=== PATIENT | male | born 1940 | race Caucasian/White ===

== ENCOUNTER 2017-09-26 05:23 | Emergency (ER) | payer MEDICARE, BC ==
[~2017-09-26] VITALS: Ht 190.5 cm; Wt 86.1 kg
[~2017-09-26 05:23] MED LIST: CALC625 PO; ENOX40P SQ; LORTA5 PO; LOVA20TA PO; PRIN10TA PO; SAW450CA2 PO; TAB-TAB PO; Z.0.COMMODE-3:1; Z.0.WALKERFRONT
[2017-09-26] MEDS ORDERED: SODIUM CHLORIDE 0.9% FLUSH 10 ML FLUSH IVF PRN (05:45)
--- NOTE | 2017-09-26 05:54 | PD ---
HPI Chief Complaint: Chest Pain Time Seen by Provider: 05:27 Travel History International Travel<30 days: No Contact w/Intl Traveler<30days: No History of Present Illness HPI 76-year-old man who presents to the emergency department complaining of palpitations, chest discomfort, lightheadedness. Reports she has been feeling fatigued recently. He went for a pacer check but a week ago that was her routine scheduled check. Everything seemed okay. He then went in for a doctor' s appointment he said his heart rate was in the 30s and 40s. His pacemaker supposed to be sent for the 70s. He had the [employer] rep, and they reassess the pacemaker and felt that it fixed. He was doing okay until the past day or so started feeling funny, and then tonight had palpitations, feeling weak and dizzy, with some chest discomfort. 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 Followed by Dr. Alfaro, as well as Dr. Enriquez Social History Alcohol Use: Yes (occ- wine) Tobacco Use: No Allergies-Medications (Allergen,Severity, Reaction): Coded Allergies: clarithromycin (Unverified Allergy, Severe, NAUSEA, 09/26/17) povidone-iodine (Unverified Allergy, Severe, Hives, 09/26/17) patient advised that he had a reaction to the medicine that was applied prior to his catherization, he believed it to be betadine. scallops (Unverified Allergy, Severe, CRAMPING, VOMITING, DIARRHEA, ) Reported Meds & Prescriptions Reported Meds & Active Scripts Active Reported Warfarin 10 Mg Tab 11.25 Mg PO EVERY OTHER WEEK Vitamin D-400 (Cholecalciferol) 400 Unit Tab 400 Units PO DAILY Warfarin 7.5 Mg Tab 7.5 Mg PO HS Aspirin 81 Low Dose (Aspirin) 81 Mg Chew 81 Mg CHEW HS Metoprolol Tartrate 50 Mg Tab 50 Mg PO BID Lisinopril 10 Mg Tab 10 Mg PO DAILY Lovastatin 20 Mg Tab 20 Mg PO HS Review of Systems Except as stated in HPI: all other systems reviewed are Neg Physical Exam Narrative GENERAL: 76-year-old man, thin, pectus excavatum, weak. SKIN: Focused skin assessment warm/dry. HEAD: Atraumatic. Normocephalic. EYES: Pupils equal and round. No scleral icterus. No injection or drainage. ENT: No nasal bleeding or discharge. Mucous membranes pink and moist. NECK: Trachea midline. No JVD. CARDIOVASCULAR: Heart rate slow, regular. No murmurs.. RESPIRATORY: No accessory muscle use. Clear to auscultation. Breath sounds equal bilaterally. GASTROINTESTINAL: Abdomen soft, non-tender, nondistended. Hepatic and splenic margins not palpable. MUSCULOSKELETAL: No obvious deformities. No edema. NEUROLOGICAL: Awake and alert. No obvious cranial nerve deficits. Motor grossly within normal limits. Normal speech. PSYCHIATRIC: Appropriate mood and affect; insight and judgment normal. Data Data Last Documented VS Vital Signs Date Time Temp Pulse Resp B/P (MAP) Pulse Ox O2 Delivery O2 Flow Rate FiO2 09/26/17 06:01 75 198/86 (123) 09/26/17 05:59 98.1 18 98 Room Air Orders Orders Electrocardiogram (09/26/17 05:42) Complete Blood Count With Diff (09/26/17 05:42) Comprehensive Metabolic Panel (09/26/17 05:42) Magnesium (Mg) (09/26/17 05:42) Troponin I (09/26/17 05:42) Ecg Monitoring (09/26/17 05:42) Iv Access Insert/Monitor (09/26/17 05:42) Oximetry (09/26/17 05:42) Oxygen Administration (09/26/17 05:42) Sodium Chloride 0.9% Flush (Ns Flush) (09/26/17 05:45) Chest, Pa & Lat (09/26/17 05:42) Act Partial Throm Time (Ptt) (09/26/17 05:49) Prothrombin Time / Inr (Pt) (09/26/17 05:49) Labs Laboratory Tests Test 09/26/17 05:53 White Blood Count 6.2 TH/MM3 Red Blood Count 4.81 MIL/MM3 Hemoglobin 14.3 GM/DL Hematocrit 43.4 % Mean Corpuscular Volume 90.1 FL Mean Corpuscular Hemoglobin 29.7 PG Mean Corpuscular Hemoglobin Concent 32.9 % Red Cell Distribution Width 13.7 % Platelet Count 254 TH/MM3 Mean Platelet Volume 8.4 FL Neutrophils (%) (Auto) 69.5 % Lymphocytes (%) (Auto) 16.6 % Monocytes (%) (Auto) 10.3 % Eosinophils (%) (Auto) 2.7 % Basophils (%) (Auto) 0.9 % Neutrophils # (Auto) 4.2 TH/MM3 Lymphocytes # (Auto) 1.0 TH/MM3 Monocytes # (Auto) 0.6 TH/MM3 Eosinophils # (Auto) 0.2 TH/MM3 Basophils # (Auto) 0.1 TH/MM3 CBC Comment DIFF FINAL Differential Comment Prothrombin Time 22.5 SEC Prothromb Time International Ratio 2.2 RATIO Activated Partial Thromboplast Time 31.5 SEC Blood Urea Nitrogen 17 MG/DL Creatinine 1.10 MG/DL Random Glucose 105 MG/DL Total Protein 7.7 GM/DL Albumin 3.8 GM/DL Calcium Level 8.6 MG/DL Magnesium Level 1.8 MG/DL Alkaline Phosphatase 51 U/L Aspartate Amino Transf (AST/SGOT) 23 U/L Alanine Aminotransferase (ALT/SGPT) 27 U/L Total Bilirubin 0.8 MG/DL Sodium Level 141 MEQ/L Potassium Level 4.2 MEQ/L Chloride Level 107 MEQ/L Carbon Dioxide Level 26.4 MEQ/L Anion Gap 8 MEQ/L Estimat Glomerular Filtration Rate 65 ML/MIN Troponin I LESS THAN 0.02 NG/ML MDM Medical Decision Making Medical Screen Exam Complete: Yes Emergency Medical Condition: Yes Interpretation(s) My review of EKG: AV sequential pacing with taking with appears to be ventricular bigeminy, with second. Atrial pacer spikes in the second ventricular wave.. LABS: CBC is unremarkable. CMP is unremarkable. Troponin negative. INR 2.2 Chest x-ray: Left subclavian pacer now in place. Clips and wires suggest median sternotomy. Lungs are grossly clear. Differential Diagnosis Pacer malfunction, electrolyte abnormality, ACS, ventricular arrhythmia, other Narrative Course Medical decision making This 76-year-old man who presents to the emergency department complaining of lightheadedness, palpitations, some chest discomfort. Looks like he is in a bigeminy not being conducted in which is obscuring his atrial pacer spikes. It sounds like the same problem he had earlier in the week that they tried to fix. Will check his electrolytes, will check an x-ray to make sure his leads look okay, will call [employer] to come and interrogate his pacemaker and then liaise with his onshore diver. Adam Goins MD Sep 26, 2017 05:54
[2017-09-26 05:59] VITALS: BP 146/79; PULSE 78; RESP 18; TEMP 98.1; O2SAT 98
[2017-09-26 06:00] LABS: AUTOMATED NEUTROPHIL # 4.2 TH/MM3 (1.8-7.7); BASOPHIL # 0.1 TH/MM3 (0-0.2); BASOPHIL % 0.9 % (0.0-2.0); EOSINOPHIL # 0.2 TH/MM3 (0-0.4); EOSINOPHIL % 2.7 % (0.0-4.0); HEMATOCRIT 43.4 % (39.0-51.0); HEMOGLOBIN 14.3 GM/DL (13.0-17.0); LYMPH % 16.6 % (9.0-44.0); MEAN CELL VOLUME 90.1 FL (80.0-100.0); MEAN CORPUSCULAR HEMOGLOBIN 29.7 PG (27.0-34.0); MEAN CORPUSCULAR HGB CONC 32.9 % (32.0-36.0); MEAN PLATELET VOLUME 8.4 FL (7.0-11.0); MONO % 10.3 % (0.0-8.0); MONOCYTE # 0.6 TH/MM3 (0-0.9); NEUT % 69.5 % (16.0-70.0); PLATELET COUNT 254 TH/MM3 (150-450); RED BLOOD COUNT 4.81 MIL/MM3 (4.50-5.90); RED CELL DISTRIBUTION WIDTH 13.7 % (11.6-17.2); WHITE BLOOD COUNT 6.2 TH/MM3 (4.0-11.0)
[2017-09-26 06:01] VITALS: BP 198/86; PULSE 75
[2017-09-26 06:07] LABS: CHLORIDE 107 MEQ/L (98-107); SODIUM (NA) 141 MEQ/L (136-145)
[2017-09-26 06:11] LABS: INTERNATIONAL NORMALIZED RATIO 2.2 RATIO; PROTHROMBIN TIME - PATIENT 22.5 SEC (9.8-11.6)
[2017-09-26 06:12] LABS: CALCIUM 8.6 MG/DL (8.5-10.1)
[2017-09-26 06:13] LABS: ALBUMIN 3.8 GM/DL (3.4-5.0); BICARBONATE 26.4 MEQ/L (21.0-32.0); BLOOD UREA NITROGEN 17 MG/DL (7-18); GLUCOSE,RANDOM 105 MG/DL (74-106); MAGNESIUM 1.8 MG/DL (1.5-2.5)
[2017-09-26 06:16] LABS: ALT (GPT) 27 U/L (12-78); AST (GOT) 23 U/L (15-37); GLOMERULAR FILTRATION RATE 65 ML/MIN (>89)
[2017-09-26 06:17] LABS: TOTAL BILIRUBIN ADULT 0.8 MG/DL (0.2-1.0)
[2017-09-26 06:18] LABS: TOTAL PROTEIN 7.7 GM/DL (6.4-8.2)
[2017-09-26 06:19] LABS: ALKALINE PHOSPHATASE 51 U/L (45-117)
[2017-09-26 06:21] LABS: TROPONIN I LESS THAN 0.02 NG/ML (0.02-0.05)
[2017-09-26] MEDS ORDERED: ASPI1CHW4 CHEW (06:22)
[2017-09-26] MEDS ORDERED: LISI10TA3 PO (06:22)
[2017-09-26] MEDS ORDERED: METO50TA PO (06:22)
[2017-09-26] MEDS ORDERED: VITATAB56 PO (06:22)
[2017-09-26] MEDS ORDERED: LOVA20TA PO (06:22)
[2017-09-26] MEDS ORDERED: WARF-21 PO (06:22)
--- NOTE | 2017-09-26 06:25 | RADRPT ---
EXAM DATE/TIME: 09/26/2017 06:07 [facility] COMPARISON: CHEST PA & LAT, October 29, 2015, 11:36. INDICATIONS : Chest pain. MEDICAL HISTORY : Cardiovascular disease. SURGICAL HISTORY : CABG. Pacemaker. Right total hip replacement ENCOUNTER: Initial ACUITY: 1 day PAIN SCORE: 7/10 LOCATION: Bilateral chest FINDINGS: PA and lateral views of the chest demonstrate the lungs to be symmetrically aerated without evidence of mass, infiltrate or effusion. There are intact sternal wires. Left subclavian bipolar pacer in goo d position. Mild hyperinflation of the lungs The cardiomediastinal contours are unremarkable. Osseou s structures are intact. CONCLUSION: Left subclavian pacer is now in place. Clips and wires suggest median sternotomy. Lungs are grossly c lear. Adam Romero MD on September 26, 2017 at 6:23 Board Certified Radiologist. This report was verified electronically.
[2017-09-26] MEDS ORDERED: WARF-22 PO (06:31)
[2017-09-26 07:03] VITALS: RESP 16; O2SAT 96
[2017-09-26 07:05] VITALS: BP 133/67; PULSE 76; RESP 16; TEMP 97.9; O2SAT 96
--- NOTE | 2017-09-26 07:29 | PD ---
HPI Chief Complaint: Chest Pain Time Seen by Provider: 07:28 Travel History International Travel<30 days: No Contact w/Intl Traveler<30days: No Traveled to known affect area: No History of Present Illness HPI Care assumed from Dr Goins 76-year-old man who presents to the emergency department complaining of palpitations, chest discomfort, lightheadedness. Reports she has been feeling fatigued recently. He went for a pacer check but a week ago that was her routine scheduled check. Everything seemed okay. He then went in for a doctor' s appointment he said his heart rate was in the 30s and 40s. His pacemaker supposed to be sent for the 70s. He had the [employer] rep, and they reassess the pacemaker and felt that it fixed. He was doing okay until the past day or so started feeling funny, and then tonight had palpitations, feeling weak and dizzy, with some chest discomfort. PFSH Past Medical History Arthritis: Yes Asthma: No Autoimmune Disease: No Anxiety: No Depression: No Heart Rhythm Problems: No Cancer: Yes (COLON) Cardiac Catheterization: Yes (10/06) Cardiovascular Problems: Yes ([place], CHF, CABG) High Cholesterol: Yes Chemotherapy: Yes Chest Pain: No Congestive Heart Failure: Yes COPD: No Cerebrovascular Accident: No Coronary Artery Disease: Yes Diabetes: No Diverticulitis: Yes Endocrine: No Gastrointestinal Disorders: Yes (DIVERTICULITIS) GERD: No Genitourinary: No Hepatitis: No Hiatal Hernia: No Hypertension: Yes Immune Disorder: No Kidney Stones: Yes Musculoskeletal: Yes (ARTHRITIS, VASC. NECROSIS RIGHT HIP) Neurologic: No Psychiatric: No Reproductive: No Respiratory: No Migraines: No Pneumonia: Yes Radiation Therapy: No Renal Failure: No Seizures: No Sickle Cell Disease: No Sleep Apnea: No Thyroid Disease: No Ulcer: No Tetanus Vaccination: > 5 Years Influenza Vaccination: Yes Past Surgical History Abdominal Surgery: Yes (COLON RESECTION, RIGHT ING. HERNIA REP.) AICD: No Appendectomy: Yes Arteriovenous Shunt: No Body Medical Devices: STENTS Cardiac Surgery: Yes (CABG) Coronary Artery Bypass Graft: Yes (4 VESSEL: 2009) Coronary Stent: Yes (10/06) Ear Surgery: No Endocrine Surgery: No Eye Surgery: Yes (LEFT EYE) Genitourinary Surgery: No Gynecologic Surgery: No Joint Replacement: Yes (RIGHT HIP) Oral Surgery: Yes (TONSILLECTOMY) Pacemaker: No Tonsillectomy: Yes Other Surgery: Yes (rectal ca, hernia) Social History Alcohol Use: Yes (occ- wine) Tobacco Use: No Substance Use: No Allergies-Medications (Allergen,Severity, Reaction): Coded Allergies: clarithromycin (Unverified Allergy, Severe, NAUSEA, 09/26/17) povidone-iodine (Unverified Allergy, Severe, Hives, 09/26/17) patient advised that he had a reaction to the medicine that was applied prior to his catherization, he believed it to be betadine. scallops (Unverified Allergy, Severe, CRAMPING, VOMITING, DIARRHEA, ) Reported Meds & Prescriptions Reported Meds & Active Scripts Active Reported Warfarin 10 Mg Tab 11.25 Mg PO EVERY OTHER WEEK Vitamin D-400 (Cholecalciferol) 400 Unit Tab 400 Units PO DAILY Warfarin 7.5 Mg Tab 7.5 Mg PO HS Aspirin 81 Low Dose (Aspirin) 81 Mg Chew 81 Mg CHEW HS Metoprolol Tartrate 50 Mg Tab 50 Mg PO BID Lisinopril 10 Mg Tab 10 Mg PO DAILY Lovastatin 20 Mg Tab 20 Mg PO HS Physical Exam Narrative GENERAL: 76-year-old man, thin, pectus excavatum, weak. SKIN: Focused skin assessment warm/dry. HEAD: Atraumatic. Normocephalic. EYES: Pupils equal and round. No scleral icterus. No injection or drainage. ENT: No nasal bleeding or discharge. Mucous membranes pink and moist. NECK: Trachea midline. No JVD. CARDIOVASCULAR: Heart rate slow, regular. No murmurs.. RESPIRATORY: No accessory muscle use. Clear to auscultation. Breath sounds equal bilaterally. GASTROINTESTINAL: Abdomen soft, non-tender, nondistended. Hepatic and splenic margins not palpable. MUSCULOSKELETAL: No obvious deformities. No edema. NEUROLOGICAL: Awake and alert. No obvious cranial nerve deficits. Motor grossly within normal limits. Normal speech. PSYCHIATRIC: Appropriate mood and affect; insight and judgment normal. Data Data Last Documented VS Vital Signs Date Time Temp Pulse Resp B/P (MAP) Pulse Ox O2 Delivery O2 Flow Rate FiO2 09/26/17 08:54 75 16 153/97 (115) 95 Nasal Cannula 2.00 09/26/17 07:05 97.9 Orders Orders Electrocardiogram (09/26/17 05:42) Complete Blood Count With Diff (3/31/18 05:42) Comprehensive Metabolic Panel (09/26/17 05:42) Magnesium (Mg) (09/26/17 05:42) Troponin I (09/26/17 05:42) Ecg Monitoring (09/26/17 05:42) Iv Access Insert/Monitor (09/26/17 05:42) Oximetry (09/26/17 05:42) Oxygen Administration (09/26/17 05:42) Sodium Chloride 0.9% Flush (Ns Flush) (09/26/17 05:45) Chest, Pa & Lat (09/26/17 05:42) Act Partial Throm Time (Ptt) (09/26/17 05:49) Prothrombin Time / Inr (Pt) (09/26/17 05:49) Labs Laboratory Tests Test 09/26/17 05:53 White Blood Count 6.2 TH/MM3 Red Blood Count 4.81 MIL/MM3 Hemoglobin 14.3 GM/DL Hematocrit 43.4 % Mean Corpuscular Volume 90.1 FL Mean Corpuscular Hemoglobin 29.7 PG Mean Corpuscular Hemoglobin Concent 32.9 % Red Cell Distribution Width 13.7 % Platelet Count 254 TH/MM3 Mean Platelet Volume 8.4 FL Neutrophils (%) (Auto) 69.5 % Lymphocytes (%) (Auto) 16.6 % Monocytes (%) (Auto) 10.3 % Eosinophils (%) (Auto) 2.7 % Basophils (%) (Auto) 0.9 % Neutrophils # (Auto) 4.2 TH/MM3 Lymphocytes # (Auto) 1.0 TH/MM3 Monocytes # (Auto) 0.6 TH/MM3 Eosinophils # (Auto) 0.2 TH/MM3 Basophils # (Auto) 0.1 TH/MM3 CBC Comment DIFF FINAL Differential Comment Prothrombin Time 22.5 SEC Prothromb Time International Ratio 2.2 RATIO Activated Partial Thromboplast Time 31.5 SEC Blood Urea Nitrogen 17 MG/DL Creatinine 1.10 MG/DL Random Glucose 105 MG/DL Total Protein 7.7 GM/DL Albumin 3.8 GM/DL Calcium Level 8.6 MG/DL Magnesium Level 1.8 MG/DL Alkaline Phosphatase 51 U/L Aspartate Amino Transf (AST/SGOT) 23 U/L Alanine Aminotransferase (ALT/SGPT) 27 U/L Total Bilirubin 0.8 MG/DL Sodium Level 141 MEQ/L Potassium Level 4.2 MEQ/L Chloride Level 107 MEQ/L Carbon Dioxide Level 26.4 MEQ/L Anion Gap 8 MEQ/L Estimat Glomerular Filtration Rate 65 ML/MIN Troponin I LESS THAN 0.02 NG/ML MDM Medical Decision Making Medical Screen Exam Complete: Yes Emergency Medical Condition: Yes Differential Diagnosis Pacer malfunction, electrolyte abnormality, ACS, ventricular arrhythmia, other Narrative Course This 76-year-old man who presents to the emergency department complaining of lightheadedness, palpitations, some chest discomfort. Looks like he is in a bigeminy not being conducted in which is obscuring his atrial pacer spikes. It sounds like the same problem he had earlier in the week that they tried to fix. Will check his electrolytes, will check an x-ray to make sure his leads look okay, will call [employer] to come and interrogate his pacemaker and then liaise with his hadoop analyst. [employer] paper sales representative evaluated patient's pacemaker. Adjusted the rate to 80. Cash Teller feels that this might be more of a misinterpretation on his monitor. States he is scheduled to see Dr. Sherwood on Thursday. Diagnosis Primary Impression: Pacemaker complications Qualified Codes: T82.9XXA - Unspecified complication of cardiac and vascular prosthetic device, implant and graft, initial encounter Patient Instructions: General Instructions Additional Instructions: Encouraged rest and fluids. Follow up with Dr. Sherwood as scheduled on Thursday. Return to emerge from with any onset of new symptoms. Disposition: 01 DISCHARGE HOME Condition: Good Charlie Mendiola MD Sep 26, 2017 07:29
[2017-09-26 08:54] VITALS: BP 153/97; PULSE 75; RESP 16; O2SAT 95
--- NOTE | 2017-09-27 12:26 | EKG ---
Date Performed: 09/26/2017 Time Performed: 05:32:03 PTAGE: 76 years EKG: ELECTRONIC ATRIAL PACEMAKER ELECTRONIC VENTRICULAR PACEMAKER ABNORMAL RHYTHM ECG Bigeminal PVCs are also noted. There also appear to be ventricular pacer spikes, which are non-captured. Compar ed to PREVIOUS TRACING , pacer spikes are new. PREVIOUS TRACIN10/29/2015 09.54.29 DOCTOR: Cj Issa Interpretating Date/Time 09/27/2017 12:25:15
== END 2017-09-26 09:40 | disposition home or self-care (01) ==
LOC: PHED 05:23
DX: T82.9XXA Unspecified complication of cardiac and vascular prosthetic device, implant and graft, initial encounter (principal); R42 Dizziness and giddiness; R00.2 Palpitations; R53.1 Weakness; R07.89 Other chest pain; I49.3 Ventricular premature depolarization; R94.31 Abnormal electrocardiogram [ECG] [EKG]; I11.0 Hypertensive heart disease with heart failure; I50.9 Heart failure, unspecified
CPT/HCPCS: 71046; 80053; 83735; 84484; 85025; 85610; 85730; 93005; 99285